=== PATIENT | female | born 1960 | race Caucasian/White ===

== ENCOUNTER → 2023-07-15 14:16 | Outpatient (REF) | payer OTHER, SELFPAY | LOC: HWWDC 14:16 | PROVIDERS: ATTENDING PHYSICIAN Obstetrics & Gynecology; FAMILY PHYSICIAN Family Medicine | DX: Z12.31 Encounter for screening mammogram for malignant neoplasm of breast (principal) | CPT/HCPCS: 77063; 77067 ==

== ENCOUNTER → 2023-09-08 | Outpatient (REF) | payer OTHER, SELFPAY | LOC: DHSLP | PROVIDERS: ATTENDING PHYSICIAN Internal Medicine; FAMILY PHYSICIAN Family Medicine | DX: G47.33 Obstructive sleep apnea (adult) (pediatric) (principal) | CPT/HCPCS: 95800 ==

== ENCOUNTER → 2023-11-03 06:43 | Day surgery (SDC) | payer OTHER, SELFPAY | LOC: GI 06:43 | PROVIDERS: ATTENDING PHYSICIAN Internal Medicine Gastroenterology | DX: Z12.11 Encounter for screening for malignant neoplasm of colon (principal); K63.89 Other specified diseases of intestine; Z86.010 Personal history of colon polyps; K64.8 Other hemorrhoids | CPT/HCPCS: G0105 ==

== ENCOUNTER → 2023-11-05 14:59 | Outpatient (REF) | payer OTHER, SELFPAY | LOC: RCS 14:59 | PROVIDERS: ATTENDING PHYSICIAN Internal Medicine; FAMILY PHYSICIAN Family Medicine | DX: R94.31 Abnormal electrocardiogram [ECG] [EKG] (principal); R07.9 Chest pain, unspecified | CPT/HCPCS: 93306 ==

== ENCOUNTER → 2023-11-07 07:29 | Outpatient (REF) | payer OTHER, SELFPAY | LOC: DHCBC/DCA 07:29 | PROVIDERS: ATTENDING PHYSICIAN Internal Medicine; FAMILY PHYSICIAN Family Medicine | DX: R94.31 Abnormal electrocardiogram [ECG] [EKG] (principal); R07.9 Chest pain, unspecified | CPT/HCPCS: 78452; 93017; A9500; J2785 ==

== ENCOUNTER 2023-11-14 03:00 | Inpatient (IN) | payer OTHER, SELFPAY ==
[2023-11-13] VITALS (9 sets, daily range): BP systolic 134–176; BP diastolic 62–95; BMI 46.1
--- NOTE | 2023-11-13 10:49 | ED.GENMED ---
History of Present Illness
General
Chief Complaint: CODE
Time Seen by Provider: 11/13/23 10:48
History of Present Illness
History of Present Illness:
HPI: I spoke to Dr. Gray, anesthesiologist at the [facility] for the history. The patient was going to have a knee replacement today. They attempted spinal anesthesia however this was unsuccessful. They then attempted LMA
but it would not seat properly. Decision was made to attempt intubation however she was a very difficult intubation. She was given succinylcholine. She desatted to 30% and they were concerned about the possibly of PEA so she was given
epi/atropine and was briefly given chest compressions. She then had a pulse and was hypertensive likely related to the epinephrine use. She arrived confused and states that she has a sore throat is her main complaint.
EXAM:
GENERAL: The patient is somewhat ill-appearing
HEENT: Recent appearing bleeding noted in intraorally, torus palatinus noted
CARDIOVASCULAR: No murmurs, borderline tachycardic heart rate, regular rhythm, No chest wall tenderness
PULMONARY: Very hoarse voice, mild tachypnea with slightly increased work of breathing
ABDOMEN: Soft with no peritoneal signs, no tenderness
NEUROLOGIC: Fair strength all extremities, no coordination deficits
PSYCHIATRIC: Appropriate mental status, normal insight and judgement
EXTREMITIES: Nontender, no edema, moves all extremities equally
SKIN: Surgical prep noted to the right lower extremity
TIME OF INITIAL ENCOUNTER: 10:45 AM
NUMBER AND COMPLEXITY OF PROBLEMS ADDRESSED AT THE ENCOUNTER
� Chronic conditions affecting care: Asthma, high blood pressure, elevated BMI
� Acute Exacerbation and/or Progression of Chronic Illness: This is an acute problem
� Differential Diagnosis includes: Difficult intubation/PEA,
AMOUNT AND/OR COMPLEXITY OF DATA TO BE REVIEWED AND ANALYZED
� I performed an independent evaluation of and my interpretation is:
EKG: Sinus 100, nonspecific ST abnormality
CT:
X-rays: Chest x-ray unremarkable
Laboratory Studies: CBC, with exception of slight low potassium of 3.3 chemistries unremarkable, initial troponin negative
Other:
� Review of other/old records: Stress nuclear negative for ischemia 11/07/2023
� Clinical information was obtained by an independent historian: I spoke to Dr. Gray, anesthesiologist. I also spoke to the daughter at bedside.
� Prescriptions/Medications Considered but not given:
� Further testing considered but not performed:
RISK OF COMPLICATIONS AND/OR MORBIDITY OR MORTALITY OF PATIENT MANAGEMENT
� Social determinants of health affecting care: Lives at home
� Discussion with other providers:
� Escalation of care including admission/observation vs risk of discharge considered: On initial evaluation the patient had hoarse voice and transmitted upper airway sounds. She was given Decadron. Most likely etiology of what
could have been a PEA arrest related to difficult/failed intubation. Some improvement while in ED. Sats were not low but nurses did place on supplemental oxygen for comfort. I did decrease the FiO2. She has remained hemodynamically stable.
Past History
Past History
ED Past Medical History: None
ED Past Surgical History: None
Phy Exam
Physical Exam
Physical Exam:
See HPI
Course
Orders/Labs/Results
Orders:
Orders
11/13/23 10:42
Electrocardiogram (*1) Urgent
Reason for Study: Chest Pain
Cardiac Monitoring- Treatment ONCE
EKG- Treatment ONCE
IV Insert/Care/Rem.- Treatment PRN
Portable Chest Xray [CR Chest Portable - 1 View] Stat
Comment:
Reason For Exam: rosc
Reason Study Needs to be Portable: Patient Unstable
If Reason is Other, explain: rosc
O2 Therapy [RESP] Urgent
Titrate/Wean O2 to maintain O2 sat greater than (%): 90
Special Instructions: Maintain sats >/=90%
Pulse Ox/spot Check [RESP] Urgent
Quantity: 1
Special Instructions: ON ROOM AIR
11/13/23 10:48
Dexamethasone Sod Phosphate [Decadron] 10 mg IV NOW STA
11/13/23 10:52
Complete Blood Count/With Diff Urgent
Comprehensive Metabolic Panel Urgent
Troponin I Urgent
11/13/23 10:54
Ondansetron Injectable [Zofran] 4 mg .ROUTE .STK-MED ONE
Ondansetron Injectable [Zofran] 4 mg IV NOW STA
11/13/23 11:45
Ketorolac [Toradol] 15 mg IV NOW STA
11/13/23 11:46
Ketorolac [Toradol] 15 mg .ROUTE .STK-MED ONE
11/13/23 12:09
Potassium Chloride [KCl] 40 meq 0.9% Sodium Chloride 250 ml [Nss] 250 ml IV NOW
11/13/23 13:01
Admit/Transfer Patient As Directed
Co-Sign Provider:
Level of Care: Observation services
Assign to:: IMU- Intermediate Care
Physician / Group: latonia santana
Diagnosis: hypoxia brief pea arrest 2/2 difficult airway intubation, hypoK, obesity
Reason for Hospitalization: hypoxia brief pea arrest 2/2 difficult airway intubation, hypoK, obesity
Code Status As Directed
Resuscitation Status: Full Code
11/13/23 13:[address] Non Medication Order As Directed
Physician Order: for bedside swallow attempt water only at first
Speech screening from Nursing [Speech Screening from [facility]] Routine
11/16/23 11:00
DC Protocol for Telemetry ONCE
Abnormal Lab Results
11/13/23
10:52
MCH 26.6 L pg
(27.0-31.0)
MCHC 32.8 L g/dL
(33.0-37.0)
RDW 14.8 H %
(11.5-14.5)
Abs Immat Gran (auto) 0.1 H 10^3/uL
(0-0.05)
Absolute Lymphs (auto) 4.4 H 10^3/uL
(1.2-3.4)
Immature Gran % 1.2 H %
(0-0.5)
Neutrophils % 42.0 L %
(42.2-75.2)
Potassium 3.3 L mmol/L
(3.5-5.1)
BUN 20 H mg/dl
(7-17)
Glucose 173 H mg/dl
(70-99)
AST 56 H U/L
(14-36)
ALT 37 H U/L
(0-35)
Alkaline Phosphatase 132 H U/L
(38-126)
Total Protein 6.1 L g/dl
(6.3-8.2)
11/13/23 10:52
11/13/23 10:52
Vital Signs
Initial and Last Documented VS:
Initial Vital Signs
Pulse Resp Pulse Ox
104 18 98
11/13/23 10:44 11/13/23 10:44 11/13/23 10:44
Last Documented Vital Signs
Temp Pulse Resp BP Pulse Ox
97.9 F 88 18 165/93 98
11/13/23 10:45 11/13/23 13:00 11/13/23 13:00 11/13/23 13:00 11/13/23 13:00
*Critical Care Note
Total Time (30-74mins, 75-104mins- exclusive of procedures): Not Applicable
ED Attending Note
-
Portions of this chart may have been created with voice recognition software.� Occasional wrong word or��sound alike� substitutions may have occurred due to the inherent limitations of voice recognition software.
Discharge Plan
Departure
Patient Disposition: Admit
Date of Disposition: 11/13/23
Time of Disposition: 11:50
Presentation/result/management discussed w/ accepting MD/DO: Hospitalist
Discharge Problem:
Cardiac arrest, Difficult airway for intubation
Interventions
Interventions:
*Risk Screen - Suicide Last Done: 11/13/23 10:48
*General Assessment Last Done: 11/13/23 10:48
*Neglect/Abuse Screening Last Done: 11/13/23 10:48
ED- Fall Risk Assessment Last Done: 11/13/23 11:38
*ED COVID-19 Vaccine History Last Done: 11/13/23 10:48
ED- Cardiac Assessment Last Done: 11/13/23 11:38
ED- Pulmonary Assessment Last Done: 11/13/23 11:38
[2023-11-13] MEDS: ZOFRAN 4 MG IV (10:55)
[2023-11-13] MEDS: DECADRON 10 MG IV (10:55)
[2023-11-13 11:03] LABS: % Basophils 0.4 % (0-2); % Eosinophils 1.8 % (0-6); % Immature Granulocytes 1.2 % (0-0.5); % Lymphocytes 48.7 % (20.5-51.1); % Monocytes 5.9 % (1.7-9.3); Absolute Eosinophils 0.2 10^3/uL (0-0.7); Absolute Immature Granulocytes 0.1 10^3/uL (0-0.05); Absolute Lymphocytes 4.4 10^3/uL (1.2-3.4); Absolute Monocytes 0.5 10^3/uL (0.1-0.6); Absolute Neutrophils 3.8 10^3/uL (1.4-6.5); Hematocrit 38.7 % (37.0-47.0); Hemoglobin 12.7 g/dL (12.0-16.0); Mean Corp Hgb Conc. 32.8 g/dL (33.0-37.0); Mean Corpuscular Hgb 26.6 pg (27.0-31.0); Mean Platelet Volume 9.9 fL (7.4-10.4); Nucleated Red Blood Cells % 0 %; Platelet Count 194 10^3/uL (130-400); Red Blood Cell Count 4.78 10^6/uL (4.20-5.40); Red Cell Dist. Width 14.8 % (11.5-14.5)
[2023-11-13 11:16] LABS: ALT (SGPT) 37 U/L (0-35); AST (SGOT) 56 U/L (14-36); Albumin 3.5 g/dl (3.5-5.0); Alkaline Phosphatase 132 U/L (38-126); Blood Urea Nitrogen 20 mg/dl (7-17); Calcium 9.1 mg/dl (8.4-10.2); Carbon Dioxide 29 mmol/L (22-30); Chloride 104 mmol/L (98-107); Estimated Creatinine Clearance 85 ml/min; Glucose 173 mg/dl (70-99); Potassium 3.3 mmol/L (3.5-5.1); Sodium 139 mmol/L (135-145); Total Bilirubin 0.5 mg/dl (0.2-1.3); Total Protein 6.1 g/dl (6.3-8.2); eGFR > 60.00
[2023-11-13 11:24] LABS: Troponin I < 0.012 ng/ml
[2023-11-13] MEDS: TORADOL 15 MG IV (11:47)
--- NOTE | 2023-11-13 12:27 | HPS.HSE ---
Addendum entered and electronically signed by Ashok Amaya MD 11/13/23 15:00:
PEA arrest during attempted intubation. CPR performed. Initial Trop was neg
Pt seen independently and agree with [employer] [facility] ANALYST note
HEENT very hoarse voice, large neck
Lungs clear
CV reg
Abd soft, nondistended
Ext no edema
Imp: Hypoxia with PEA/CPR
obesity
JENNY
P:admit IMU
Pulm and Cardio consults
Dgts told to bring CPAP from home
Original Note:
Family Physician
-
Family Physician:
Chief Complaint
-
Hypoxia status post difficult intubation brief episode of PEA
History of Present Illness
62-year-old female from outpatient [facility] who had attempted anesthesia for right TKA with Dr. Rubio. During anesthesia attempt by Dr. Gray she had a failed spinal followed by failed LMA that would not seal. She was a
difficult intubation during intubation she decided to 30% and had brief episode of PEA treated with epinephrine, atropine, chest compressions with return of ROSC. Upon arrival to the ER she was reported to be in moderate distress nauseated with
severe throat pain, tachypnea and some slight blood in her mouth. She was treated with IV Zofran, IV steroids and Toradol. She was also noted to be hypokalemic at 3.3. She did have outpatient stress test that was negative on 11/07/2023 and a 2D
echo on 11/05/2023 with EF 65 to 70%. Her daughter who is at bedside reports she had right shoulder surgery in July 2022 and ankle surgery February 2023 but this was completed by a nerve block only not general anesthesia. The Patient currently
reports hoarse voice with some painful swallowing and belching. She denies fever, chills, chest pain, shortness of breath, cough, abdominal pain, nausea, vomiting or diarrhea, urinary symptoms
She has Past medical history hypertension, HLD, asthma, depression, morbid obesity, arthritis, sleep apnea uses nasal pillow
Medical History
Past Medical History
Past Medical History: Reports Other
Additional Past Medical History:
hypertension
HLD,
asthma-mild intermittent associated with URIs only per patient
depression,
morbid obesity
sleep apnea uses nasal pillow
arthritis
Past Surgical History: Reports Other
Additional Past Surgical History:
Cholecystectomy 2003
Right ankle tendon repair with screw February 2023 completed with nerve block
Right shoulder cuff repair July 2022 completed with nerve block
Social History
Tobacco: Non-smoker
Alcohol: None
Drug: None
Personal: Single
Living: Alone
Family History
Family History: Other (Both parents living in their 80s mother history of hypothyroidism, father history of CVA x 2, paternal grandfather [place] age 50s)
Allergies / Home Medications
Allergies reflects when Allergies were last updated in [employer].
Home Medications with original date entered in [employer]
Allergy/Medication List:
Allergies
Allergy/AdvReac Type Severity Reaction Status Date / Time
No Known Allergies Allergy Verified 03/11/23 13:11
Home Medications
docusate sodium 100 mg capsule (Colace) 100 mg PO BID Constipation 08/08/22
calcium carbonate 500 mg-vitamin D3 3.125 mcg (125 unit) tablet 1 tab PO DAILY Supplement 03/07/23
hydrochlorothiazide 25 mg tablet 25 mg PO DAILY 11/13/23
mupirocin 2 % topical ointment 1 applic topical BID 11/13/23
rosuvastatin 5 mg tablet 5 mg PO DAILY 11/13/23
therapeutic multivitamin 1 tab PO DAILY 11/13/23
Review of Systems
-
History Source: Patient and Family (Daughter at bedside)
A 12 point ROS was completed and negative except as noted: Yes
Constitutional: Denies Fatigue or Chills
EENT: Reports Sore Throat and Other (Hoarse voice mallampati class IV airway, miranda to Maxilla midline ); Denies Runny Nose
Respiratory: Denies Cough or Trouble Breathing
Cardiac: Denies Chest Pain, Diaphoresis, Palpitations or Syncope
Abdomen/GI: Reports Other (Belching likely secondary to LMA attempt for intubation); Denies Abdominal Pain, Nausea, Vomiting, Diarrhea, Constipated or Bloody Stools
: Denies Dysuria, Frequency, Flank Pain, Incontinence or Difficulty Voiding
Musculoskeletal: Reports Joint Pain (Chronic right knee pain); Denies Joint Swelling or Edema
Skin: Denies Itching or Rash
Neurological: Denies Dizzy, Headache or Weakness
Endocrine: Reports No Symptoms
Hematologic/Lymphatic: Reports No Symptoms
Psych: Reports Calm
Physical Exam
Vital Signs
Vital Signs
Temp Pulse Resp BP Pulse Ox
97.9 F 94 15 148/91 94
11/13/23 10:45 11/13/23 11:30 11/13/23 11:30 11/13/23 11:00 11/13/23 11:30
Physical Exam
General: Conversant (But with hoarse voice) and Morbidly Obese; No Pain, Fever or Chills
HEENT: NormoCephalic, Anicteric, Moist mucous membranes, PERRLA, [place] Conjunctivae, No Ptosis and Other (Hoarse voice, Mallampati class IV airway on exam, miranda to Maxilla midline )
Respiratory: Clear; No Wheezes, Rales or Rhonchi
Cardiac: S1/S2 and Regular Rhythm; No Murmur, Rub, Gallop or Peripheral Edema
GI: Soft, Non Tender, Non Distended, Normal Bowel Sounds and No Hepatosplenomegaly
Rectal: Deferred by Provider
Genito-urinary: Deferred by me
Musculoskeletal: No Clubbing, No Cyanosis and No Edema
Skin: Warm and Dry; No Rash or Jaundice
Neuro: AO x 3, No Motor Deficits, Nonfocal/grossly intact, Cranial Nerves Intact, No Sensory Deficits and Other (Hoarse voice); No Slurred Speech, Facial Droop or Tremors
Psych: Calm
Laboratory Results
-
11/13/23 10:52
11/13/23 10:52
Laboratory Results
Total Bilirubin 0.5 mg/dl (0.2-1.3) 11/13/23 10:52
AST 56 U/L (14-36) H 11/13/23 10:52
ALT 37 U/L (0-35) H 11/13/23 10:52
Alkaline Phosphatase 132 U/L (38-126) H 11/13/23 10:52
Troponin I < 0.012 ng/ml 11/13/23 10:52
Impression/Plan
-
Impression/Plan:
OBS IMU
#Hypoxia secondary to Difficult intubation likely causing brief episode of PEA
-Patient treated with epinephrine/atropine and chest compressions with ROSC
Had O2 down to 30% in OR
Mallampati class IV airway on exam
-Patient currently 94-100% on 2 L nasal cannula
-Will monitor for supportive care
-IV Zofran, IV steroids, IV Toradol given in Er
-Check CXR in am, monitor for fever, elevated WBC, blood pressure
CXR: No acute cardiopulmonary process
2D echo 11/05/2023: EF 65 to 70%, no wall abnormalities no valvular abnormalities no pulm HTN
Nuclear stress test 11/07/2023: Negative for ischemia systolic function normal
#Hoarseness of throat with nausea secondary to difficult intubation with multiple airway attempts
--Nurse bedside swallow eval-if passes would give full liquid diet
-Speech swallow eval
-Cepacol lozenges
#Ekg changes 2/2 to likely brief PEA from hypoxia
-follow Ekg, t wave inversion inferior leads
- check troponin
-Consult Cardiology
#Hypokalemia
K3.3
-Will give KCl 40 mEq IV
#Right knee DJD attempted right TKA today 11/13/2023
-unable to perform secondary to difficult intubation, failed spinal epidural and failed LMA would not seal
-Follow-up outpatient with Ortho for new plan
#HTN�benign
BP 148/91
-Hold HCTZ
#HLD
-Continue Crestor 5 mg daily
#Hx asthma mild intermittent associated with URIs only
-Patient does not use any inhalers
#Depression
-Follows with psychology
#sleep apnea uses nasal pillow
dx 1.5 months ago
#Morbid obesity due to excess calorie consumption�BMI 46
-Affects all aspects of care
-Weight loss recommended-patient reports did have discussion about Ozempic with PCP who wanted to hold off I recommend she revisit that consult given today's complications from surgery
Other PMH:
Frequent urination, nocturia Hx
Arthritis
DVT prophylaxis
Subcu Lovenox
Full code
[2023-11-13] MEDS: KCL 270 MEQ IV (12:56)
--- NOTE | 2023-11-13 13:42 | CON.CAR ---
Addendum entered and electronically signed by Hugo Linda MD 11/13/23 15:14:
I saw and examined the patient.
The [employer]'s note was reviewed and I agree with the note.
62-year-old woman history of hypertension hypercholesterolemia asthma obesity and obstructive sleep apnea who was scheduled for knee replacement. Sequence of events obtained from hospitalist team. Apparently initial plans were for epidural but
then there needed to be a change in anesthesia initial attempt at LMA but this could not be done. Decision was made to proceed with general anesthesia patient given additional sedation and apparently had desaturation with sats in the 30s and had a
PEA arrest with brief CPR patient given epinephrine and atropine with return of circulation currently awake alert and comfortable. Hoarse voice no complaints of shortness of breath or chest pain. Patient had preoperative testing 10/2023 including
echocardiogram with normal left ventricular function and a Lexiscan study with no ischemia. It appears that the primary event was related to desaturation secondary to anesthesia. Patient currently hemodynamically stable in sinus rhythm with stable
ECG.
-Continue monitoring of respiratory status and airway as directed by primary team and pulmonary.
-Monitor on telemetry
-Follow-up echocardiogram this admission.
-Patient currently hypertensive. Continue to monitor blood pressure.
Original Note:
Consultation
Consultation Request
Date/Time Consultation Requested: 11/13/23 1316
Date/Time Consultation Performed: 11/13/23 1345
Requesting Provider: Yoselyn Moscoso NP
Performing Provider: Lily BERKOWITZ for Dr. Linda
Reason for Consultation: PEA arrest following difficulty with intubation, EKG abnormalities
Medical History
-
Chief Complaint: PEA arrest following difficulty with intubation
History of Present Illness:
62 y/o female with hypertension, dyslipidemia, asthma, severe obesity, and JENNY on CPAP who is here for evaluation from surgery center. Briefly, she was scheduled to have a knee replacement. Initially, spinal anesthesia and LMA were unable to be
done. Intubation was reportedly complicated and she desaturated to 30's. In this setting, she was reported to have PEA arrest and CPR was performed and she was given epinephrine, as well as atropine per chart, and ROSC was achieved. She is in the ER
currently on O2 by GA. She is in no respiratory distress. She denies CP or SOB. She does have a very sore throat and complaints of phlegm. She is AAO x 3. Her daughter is at her bedside.
Past Medical History
Past Medical History: Asthma, HTN, Hypercholesterolemia and Other (severe obesity)
Social History
Tobacco: Non-Smoker
Family History
Family History: Other (dad had stroke)
Allergies / Home Medications
Allergy/AdvReac Type Severity Reaction Status Date / Time
No Known Allergies Allergy Verified 03/11/23 13:11
�Medication �Instructions �Recorded �Confirmed �Type
docusate sodium 100 mg capsule 100 mg PO BID Constipation 08/08/22 11/13/23 History
(Colace)
calcium carbonate 500 mg-vitamin 1 tab PO DAILY Supplement 03/07/23 11/13/23 History
D3 3.125 mcg (125 unit) tablet
hydrochlorothiazide 25 mg tablet 25 mg PO DAILY 11/13/23 11/13/23 History
mupirocin 2 % topical ointment 1 applic topical BID 11/13/23 11/13/23 History
rosuvastatin 5 mg tablet 5 mg PO DAILY 11/13/23 11/13/23 History
therapeutic multivitamin 1 tab PO DAILY 11/13/23 11/13/23 History
Review of Systems
-
History Source: Patient
All other systems: Negative unless noted
EENT: Sore Throat and Other (phlegm)
Physical Exam
Vital Signs
Temp Pulse Resp BP Pulse Ox
97.9 F 88 18 165/93 98
11/13/23 10:45 11/13/23 13:00 11/13/23 13:00 11/13/23 13:00 11/13/23 13:00
Lab Results
11/13/23 10:52
11/13/23 10:52
Troponin I < 0.012 ng/ml 11/13/23 10:52
Physical Exam
General: Well Developed and No Apparent Distress
HEENT: Normocephalic and Anicteric
Respiratory: Other (on O2 by NC, coarse lung sounds t/o)
Cardiac: Regular Rhythm
Skin: Warm and Dry
Neuro: AO x 3
Psych: Calm
Impression / Plan
-
PEA arrest, respiratory cause (difficult intubation with severe desaturation):
-this diagnosis is threat to life
-now on NC, denies any respiratory distress. CXR without acute abnormality.
-EKG with non-specific abnormalities- recheck in AM
-hypokalemia noted and being replaced
-echo is ordered to ensure no changes from recent
-trop is normal- trend
-complaint is sore throat and phlegm- management per primary team
HTN:
-monitor and adjust meds if needed
Dyslipidemia:
-on statin
Severe obesity:
-will benefit from weight loss moving forward
JENNY:
-continue CPAP
Data Reviewed
-
EKG: Tracing Personally Visualized and interpreted (SR with NS ST/T abnormalities)
Radiology: Report Reviewed by me (No active cardiopulmonary disease.)
Medical Tests (Nuc Med, Echo etc): Report Reviewed by me (Echo 11/05/23: Normal left ventricular size and systolic function. No regional wall motion abnormalities are seen. LV ejection fraction is 65-70% by Matson's method of discs. Normal
diastolic function. Normal right ventricular size and function. Normal atria. No significant valve abnormalities.) and Other (nuclear stress test 11/07/23: normal)
Labs: Labs Reviewed by me
--- NOTE | 2023-11-13 15:07 | CON.PUL ---
Consultation
Consultation Request
Date/Time Consultation Requested: 11/13/23
Date/Time Consultation Performed: 11/13/23
Performing Provider: Lito
Reason for Consultation: JENNY, post arrest
Medical History
-
History of Present Illness:
Patient is a 62-year-old female with previous history of JENNY on CPAP, morbid obesity, asthma sent to ER following cardiac arrest at outpatient surgery center. She underwent elective right knee replacement, spinal anesthesia was attempted but
unsuccessful. Was tried for attempted LMA but airway could not be established. Decision was made for intubation however she was a very difficult intubation, and under induction desaturated to the 30s and developed PEA arrest. Given epi and
atropine with brief chest compressions. She had ROSC, transported to ER, confused. Her main complaint now is sore throat and chest discomfort.
Family at bedside, notes that she had a colonoscopy last week and tolerated MAC well.
Past Medical History
Past Medical History: Other (see list below)
Social History
Tobacco: Non-smoker
Alcohol: None
Drug: None
Family History
Family History: Reviewed & Not Pertinent
Allergies / Home Medications
Allergies
Allergy/AdvReac Type Severity Reaction Status Date / Time
No Known Allergies Allergy Verified 03/11/23 13:11
Home Medications
�Medication �Instructions �Recorded �Confirmed �Last Taken �Type
docusate sodium 100 mg capsule 100 mg PO BID Constipation 08/08/22 11/13/23 11/12/23 History
(Colace)
calcium carbonate 500 mg-vitamin 1 tab PO DAILY Supplement 03/07/23 11/13/23 11/12/23 History
D3 3.125 mcg (125 unit) tablet
hydrochlorothiazide 25 mg tablet 25 mg PO DAILY 11/13/23 11/13/23 11/12/23 History
mupirocin 2 % topical ointment 1 applic topical BID 11/13/23 11/13/23 11/12/23 History
rosuvastatin 5 mg tablet 5 mg PO DAILY 11/13/23 11/13/23 11/12/23 History
therapeutic multivitamin 1 tab PO DAILY 11/13/23 11/13/23 11/12/23 History
Review of Systems
-
History Source: Patient
All other systems: Negative unless noted
Vitals / Labs / Diagnostic Testing
Vital Signs
Temp Pulse Resp BP Pulse Ox
97.9 F 94 20 165/93 97
11/13/23 10:45 11/13/23 14:00 11/13/23 14:00 11/13/23 13:00 11/13/23 14:18
Lab Data
11/13/23 10:52
11/13/23 10:52
Diagnostic Testing:
Physical Exam
-
HEENT: Normocephalic, Anicteric and Moist Mucous Membranes
Cardiovascular: S1/S2 and Regular Rhythm
Respiratory: Clear and Non-Labored Respirations
GI: Soft, Non Distended and Non Tender
Neurology: Awake, Alert, Oriented, AO x 3 and No Motor Deficits
Skin: Warm, Dry and Good Color
General: Comfortable and Other (NAD)
Assessment
-
Patient is a 62-year-old female with previous history of JENNY on CPAP, morbid obesity, asthma sent to ER following cardiac arrest at outpatient surgery center. She underwent elective right knee replacement, spinal anesthesia was attempted but
unsuccessful. Was tried for attempted LMA but airway could not be established. Decision was made for intubation however she was a very difficult intubation, and under induction desaturated to the 30s and developed PEA arrest. Given epi and
atropine with brief chest compressions. She had ROSC, transported to ER, confused. Her main complaint now is sore throat and chest discomfort. Family at bedside, notes that she had a colonoscopy last week and tolerated MAC well. We are consulted
for eval 11/13/23.
Cardiac arrest, primarily respiratory event with desaturation --> PEA arrest
s/p Epi/atropine/CPR
Difficult airway/failed intubation
History of JENNY, high risk airway
Hypokalemia
Hyperglycemia
Conditions present [employer]
JENNY on CPAP, AHI 25.2/78%
venous insufficiency in legs
Obesity
Asthma
Depression/anxiety
Colon polyps
Cholecystectomy(1985)
Bilateral tubal ligation
Ankle surgery/ tendon removal/ repair
Right Shoulder Scope 08/13/2022
R foot surgery 03/13
Plan
Supplemental o2 placed, but not noted to be currently hypoxemic
Had sats in 30s while under anesthesia
She is not known to be on O2 at home
Wean as tolerated
Home O2 evaluation eventually
Prior history of lung disease is noted including asthma, JENNY
Can resume home inhalers
Seen in our office
Sore throat noted, assess for swallow
Speech eval
Suspect patient has respiratory event from difficult airway
We reviewed her risk in the future for any elective procedures using MAC/general
She would need pulmonary clearance in the future
JENNY, resume nightly CPAP use
Most crucial to resume while there is likely airway swelling
CXR/CT obtained indicating NAD
Other imaging reviewed, repeat testing as needed
Prior ECHO results are reviewed indicating normal function
She had cardiac clearance prior to procedure
Cards eval obtained
Weight loss measures recommended
Obesity likely contributing to respiratory symptoms
We discussed weight loss would improve her risk and reduce her need for CPAP as well
Will need outpatient pulmonary evaluation in our office for PFTs and 6MWT
Reviewed with patient
If no acute findings in next 24 hours noted, could be discharged
We will follow
Diagnostic Data
Chest X-Ray: 10/24/23- No active cardiopulmonary disease.
CT Scan:
Echo: 11/05/23- Normal left ventricular size and systolic function. No regional wall motion abnormalities are seen. LV ejection fraction is 65-70% by Matson's method of discs. Normal diastolic function. Normal right ventricular size and function.
Normal atria. No significant valve abnormalities. No evidence of pulmonary hypertension.
PFT's:
Reports and relevant images were personally reviewed.
Total time spent on this consultation __76__ includes review of history, physical exam, medications, laboratory data, personal review of imaging, extensive review of outpatient records, discussion with care team and respiratory therapy.
[2023-11-13] MEDS: ANESTHETIC LOZENGE 1 LOZENGE PO ×2 (16:21→20:05)
--- NOTE | 2023-11-13 16:27 | W.PN.UPDATE ---
Update Note
Progress Note Update
I saw and evaluated the patient at bedside. 62-year-old female who is scheduled for right knee replacement with me today who went into respiratory arrest prior to starting surgery requiring resuscitation. The patient was awake and alert describing
sore throat and soreness around her chest wall. She is on nasal cannula. We discussed the events that transpired in the OR with the patient and family. We discussed focusing in the short-term on her acute medical issues. We discussed that she
may follow-up with me at any time to discuss both short-term and long-term treatments for her knees when she has recovered medically. All questions were answered.
[2023-11-13] MEDS: TYLENOL 650 MG PO ×2 (16:33→20:40)
[2023-11-13] MEDS: NSS 1000 IV (16:34)
[2023-11-13] MEDS: LOVENOX 40 MG SC (17:10)
[2023-11-13 17:20] LABS: Troponin I 0.114 ng/ml
[2023-11-13] MEDS: NORVASC 5 MG PO (18:14)
[2023-11-13] MEDS: COLACE PO (20:05)
--- NOTE | 2023-11-13 20:36 | PTCARENOTE ---
Received pt at change of shift. Pt c/o pain in her chest and back from compressions done prior to arrival at - PRN Tylenol administered to pt (see MAR). Shallow respirations d/t pain. Lungs CTA but diminished throughout. C/o sore throat - PRN
cepacol provided to pt (see MAR). Resting in bed with call garcia in reach. Daughter at bedside.
[2023-11-14] VITALS (12 sets, daily range): BP systolic 102–174; BP diastolic 72–122; PULSE 73–74; O2SAT 96; BMI 44.4
[2023-11-14 00:09] LABS: Troponin I 0.089 ng/ml
[2023-11-14] MEDS: NSS 1000 IV (05:37)
[2023-11-14 06:04] LABS: % Basophils 0.1 % (0-2); % Immature Granulocytes 0.4 % (0-0.5); % Lymphocytes 13.9 % (20.5-51.1); % Monocytes 9.4 % (1.7-9.3); % Neutrophils 76.2 % (42.2-75.2); Absolute Immature Granulocytes 0.1 10^3/uL (0-0.05); Absolute Lymphocytes 1.9 10^3/uL (1.2-3.4); Absolute Monocytes 1.3 10^3/uL (0.1-0.6); Absolute Neutrophils 10.5 10^3/uL (1.4-6.5); Hematocrit 39.1 % (37.0-47.0); Hemoglobin 13.1 g/dL (12.0-16.0); Mean Corp Hgb Conc. 33.5 g/dL (33.0-37.0); Mean Corpuscular Hgb 27.5 pg (27.0-31.0); Mean Platelet Volume 10.5 fL (7.4-10.4); Nucleated Red Blood Cells % 0 %; Platelet Count 200 10^3/uL (130-400); Red Blood Cell Count 4.77 10^6/uL (4.20-5.40); White Blood Cell Count 13.8 10^3/uL (4.8-10.8)
[2023-11-14] MEDS: TYLENOL 650 MG PO ×4 (06:30→22:19)
[2023-11-14 06:39] LABS: Blood Urea Nitrogen 17 mg/dl (7-17); Calcium 9.7 mg/dl (8.4-10.2); Carbon Dioxide 28 mmol/L (22-30); Chloride 106 mmol/L (98-107); Estimated Creatinine Clearance 111 ml/min; Glucose 125 mg/dl (70-99); Potassium 4.3 mmol/L (3.5-5.1); Sodium 138 mmol/L (135-145); eGFR > 60.00
[2023-11-14] MEDS: NORVASC 5 MG PO (07:39)
[2023-11-14] MEDS: COLACE 100 MG PO ×2 (07:39→19:33)
[2023-11-14] MEDS: OSCAL 500 + D 500 MG PO (07:39)
[2023-11-14] MEDS: CRESTOR 5 MG PO (07:39)
--- NOTE | 2023-11-14 08:43 | W.PN.CD ---
Today's Communication / Plan
-
stable overnight
echo with normal LVF and no rhyhtm issues
Primary team has added amlodipine for HTN. Monitor BP with change in meds
No addtional recommendations
call if additional assistance required
Impression / Plan
-
PEA arrest, respiratory cause - desaturation and airway issues during anesthesia
[facility]
- follow up echo with normal LVF
-troponin rise likely non OK troponin related to hypotension and hypoxemia. Echo with normal LVF
.
chest wall pain secondary to CPR. preproducible withpalpation
HTN:
amlodipine started can use in stead of HCTZ
Dyslipidemia:
-on statin
obesity:
JENNY:
-continue CPAP
-pulmonary following
Physical Exam
Vital Signs/Labs
Vital Signs
Temp Pulse Resp BP Pulse Ox
98.2 F 73 18 158/84 95
11/14/23 07:52 11/14/23 07:39 11/14/23 04:00 11/14/23 07:39 11/14/23 04:00
11/13/23 11/14/23 11/15/23
06:59 06:59 06:59
Actual Weight 110 kg
11/14/23 05:37
11/14/23 05:37
LAB Results
11/13/23 11/13/23 11/13/23
10:52 16:44 23:17
Troponin I < 0.012 0.114 H* D 0.089 H*
Physical Exam
Constitutional: No acute distress
EENT: Anicteric
Cardiovascular: Rhythm & rate is regular and Other (chest wall tenderness with palpation consistent with CPR)
Respiratory: Respiratory effort normal
GI: Soft
Neuro/Psych: Alert
Data Reviewed
-
Date of Service: November 14, 2023
Medical Decision Making: Reviewed Test Results
Medical Tests (PFT, Pathology etc): Report Reviewed by me
Labs: Labs Reviewed by me
--- NOTE | 2023-11-14 09:11 | W.PN.PUL3 ---
Today's Communication / Plan
-
Doing well today, cardiac w/u negative
She is stable on RA
Respiratory event primarily, we reviewed her risk in the future
Continue home CPAP, doing well
Referral to OP obesity medicine for weight loss
Outpatient pulmonary FU arrangement in next 2-3 weeks, PFTs
Discharge planning per team
Assessment
-
Patient is a 62-year-old female with previous history of JENNY on CPAP, morbid obesity, asthma sent to ER following cardiac arrest at outpatient surgery center. She underwent elective right knee replacement, spinal anesthesia was attempted but
unsuccessful. Was tried for attempted LMA but airway could not be established. Decision was made for intubation however she was a very difficult intubation, and under induction desaturated to the 30s and developed PEA arrest. Given epi and
atropine with brief chest compressions. She had ROSC, transported to ER, confused. Her main complaint now is sore throat and chest discomfort. Family at bedside, notes that she had a colonoscopy last week and tolerated MAC well. We are consulted
for eval 11/13/23.
Cardiac arrest, primarily respiratory event with desaturation --> PEA arrest
s/p Epi/atropine/CPR
Difficult airway/failed intubation
History of JENNY, high risk airway
Hypokalemia
Hyperglycemia
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
JENNY on CPAP, AHI 25.2/78%
venous insufficiency in legs
Obesity
Asthma
Depression/anxiety
Colon polyps
Cholecystectomy(1985)
Bilateral tubal ligation
Ankle surgery/ tendon removal/ repair
Right Shoulder Scope 08/13/2022
R foot surgery 03/13
Plan
Supplemental o2 placed, but not noted to be currently hypoxemic
Had sats in 30s while under anesthesia
She is not known to be on O2 at home
Wean as tolerated, she is now on RA
Prior history of lung disease is noted including asthma, JENNY
Can resume home inhalers
Seen in our office
Sore throat noted, assess for swallow
Speech eval -- passed/no issues
Suspect patient has respiratory event from difficult airway
We reviewed her risk in the future for any elective procedures using MAC/general
She would need pulmonary clearance in the future
JENNY, resume nightly CPAP use
Most crucial to resume while there is likely airway swelling
CXR/CT obtained indicating NAD
Other imaging reviewed, repeat testing as needed
Prior ECHO results are reviewed indicating normal function
She had cardiac clearance prior to procedure
Cards eval obtained
Weight loss measures recommended
Obesity likely contributing to respiratory symptoms
We discussed weight loss would improve her risk and reduce her need for CPAP as well
Referral given to OP obesity medicine clinic
Will need outpatient pulmonary evaluation in our office for PFTs and 6MWT
Reviewed with patient
Discharge planning per team
Diagnostic Data
Chest X-Ray: 10/24/23- No active cardiopulmonary disease.
CT Scan:
Echo: 11/05/23- Normal left ventricular size and systolic function. No regional wall motion abnormalities are seen. LV ejection fraction is 65-70% by Matson's method of discs. Normal diastolic function. Normal right ventricular size and function.
Normal atria. No significant valve abnormalities. No evidence of pulmonary hypertension.
PFT's:
Reports and relevant images were personally reviewed.
Total time spent on this consultation __51__ includes review of history, physical exam, medications, laboratory data, personal review of imaging, extensive review of outpatient records, discussion with care team and respiratory therapy.
Subjective Data
-
Date of Service:
Date of Service: November 14, 2023
Chief Complaint: Pulmonary Follow Up
Subjective:
no new events ON
on home CPAP
daughters at bedside
Objective Data
Data Reviewed
Vital Signs / I&O / Oxygen:
Vital Signs
Temp Pulse Resp BP Pulse Ox
98.2 F 73 18 158/84 95
11/14/23 07:52 11/14/23 07:39 11/14/23 04:00 11/14/23 07:39 11/14/23 04:00
Intake and Output
11/13/23 11/14/23 11/15/23
06:59 06:59 06:59
Intake Total 920 / 920
Output Total 800 / 800
Balance 120 / 120
SaO2 95
Nasal Cannula flow liters per 2
minute
Physical Exam
General: Comfortable and Other (NAD)
HEENT: Normocephalic, Anicteric, Moist Mucous Membranes and Other (vocal hoarseness)
Cardiovascular: S1-S2 and Regular Rhythm
Respiratory: Clear and Non-Labored Respirations
GI: Soft, Non Distended and Non Tender
Neurology: Awake, Alert, Oriented, AO x 3 and No Motor Deficits
Skin: Warm, Dry and Bruising (neck)
Labs/Micro/Reports
Lab Data
11/14/23 05:37
11/14/23 05:37
--- NOTE | 2023-11-14 10:49 | PTOTSP ---
SPEECH THERAPY SWALLOW EVALUATION:
Patient exhibits clinical signs of oropharyngeal dysphagia, likely acutely related to difficult intubation during failed Right knee replacement surgery. Patient currently with hoarse vocal quality and intermittent wet vocal quality, which
patient/family reported is improved compared to day prior. Inconsistent/intermittent throat clearing noted during p.o. trials. Patient with clear CXR at this time. Elevated WBC. Stable respiratory status, breathing comfortably on room air. Recommend
Regular texture diet and thin liquids, with patient to select soft textures for ease of mastication. Medications whole with small sips of thin liquid. Aspiration precautions including: Upright positioning (OOB in chair preferred), small single sips,
small bites, alternate textures, eat only when alert, only provide p.o. when SpO2>90 and RR<30, intermittent cough/throat clear and re-swallow. Oral care 3x/day and increased mobility as able/tolerated to reduce risk for nosocomial infection.
Recommend close monitoring for signs/symptoms of aspiration (monitor temp, CXR, labs). Should patient exhibit signs concerning for aspiration or a decline in mental or respiratory status, recommend d/c oral diet and make NPO until ST re-assessment.
Speech therapy to follow closely, determine indication for instrumental assessment of swallowing (i.e. VSE) if indicated, assess diet tolerance and modify as appropriate, and provide continued education regarding aspiration risks and precautions.
Discussed recommendations with patient. Educated patient/family on aspiration risks/precautions and monitoring for any signs of aspiration. Pt reported she may be discharged today; Recommend continued monitoring for signs of aspiration upon
discharge and contacting MD should any concern for aspiration occur, or if dysphagia/odynophagia/voice symptoms persist or worsen. Patient verbally reported she understood all recommendations. Signage posted in patient room. All questions answered.
RECOMMEND:
1) Regular texture diet and thin liquids, with patient to select soft textures for ease of mastication
2) Medications whole with small sips of thin liquid
3) Aspiration precautions including: Upright positioning (OOB in chair preferred), small single sips, small bites, alternate textures, eat only when alert, only provide p.o. when SpO2>90 and RR<30, intermittent cough/throat clear and re-swallow.
Oral care 3x/day and increased mobility as able/tolerated to reduce risk for nosocomial infection. Recommend close monitoring for signs/symptoms of aspiration (monitor temp, CXR, labs). Should patient exhibit signs concerning for aspiration or a
decline in mental or respiratory status, recommend d/c oral diet and make NPO until ST re-assessment.
4) Speech therapy to follow closely, determine indication for instrumental assessment of swallowing (i.e. VSE) if indicated
--- NOTE | 2023-11-14 12:59 | W.PN.UPDATE ---
Update Note
Progress Note Update
Patient was seen this a.m.; she reports improving symptoms relative to her throat and chest.
Will continue to follow the patient from events of our outpatient surgical center leading to admission; see H&P from primary. Will have further definitive planning regarding her right knee osteoarthritis in outpatient setting when the patient
stabilizes.
[2023-11-14] MEDS: LOVENOX 40 MG SC (16:36)
[2023-11-14] MEDS: ANESTHETIC LOZENGE 1 LOZENGE PO (16:36)
--- NOTE | 2023-11-14 16:46 | CM ---
Patient from [facility] with Dx Cardiac arrest/PEA arrest. Room air. PT & OT Evals; no needs.
Met with patient and patient's daughter Marlene;
the patient resides in a 2 story house with 7 DAVID.
The patient has been independent in ADLs and ambulation.
The patient is retired and active.
DME- RW, SPC, CPAP
Prior [facility].
No prior SNF.
PCP [facility]
Pharmacy - [facility]
Daughter signed Observation Letter.
No CM d/c needs identified.
Plan home.
[2023-11-14 17:00] LABS: Urine Albumin Negative (Neg - Trace); Urine Bilirubin Negative (Negative); Urine Character Clear (Clear); Urine Color Yellow; Urine Glucose Negative (Negative); Urine Ketone Negative (Negative); Urine Leukocyte Negative (Negative); Urine Nitrite Negative (Negative); Urine Occult Blood Negative (Negative); Urine Urobilinogen Negative (Neg - 1+)
--- NOTE | 2023-11-14 19:56 | PTCARENOTE ---
Received pt from [facility]. Pt is AAOx3. NSR on the monitor, b/l LE +1 edema. On RA O2 sat 94%, lungs diminished. BRP x1. Pt c/o soreness. Family @ bedside. Pt is laying comfortable in bed with call garcia in reach.
[2023-11-15] VITALS (13 sets, daily range): BP systolic 128–163; BP diastolic 65–134; BMI 44.3
[2023-11-15] MEDS: TYLENOL 650 MG PO ×4 (02:59→18:41)
[2023-11-15 06:35] LABS: % Basophils 0.2 % (0-2); % Eosinophils 0.5 % (0-6); % Immature Granulocytes 0.3 % (0-0.5); % Lymphocytes 28.9 % (20.5-51.1); % Neutrophils 60.1 % (42.2-75.2); Absolute Eosinophils 0.1 10^3/uL (0-0.7); Absolute Lymphocytes 3.7 10^3/uL (1.2-3.4); Absolute Monocytes 1.3 10^3/uL (0.1-0.6); Absolute Neutrophils 7.6 10^3/uL (1.4-6.5); Hematocrit 40.2 % (37.0-47.0); Hemoglobin 13.4 g/dL (12.0-16.0); Mean Corp Hgb Conc. 33.3 g/dL (33.0-37.0); Mean Corpuscular Hgb 27.6 pg (27.0-31.0); Mean Corpuscular Volume 82.9 fL (81.0-99.0); Mean Platelet Volume 10.9 fL (7.4-10.4); Nucleated Red Blood Cells % 0 %; Platelet Count 203 10^3/uL (130-400); Red Blood Cell Count 4.85 10^6/uL (4.20-5.40); Red Cell Dist. Width 15.6 % (11.5-14.5); White Blood Cell Count 12.7 10^3/uL (4.8-10.8)
[2023-11-15 07:02] LABS: Blood Urea Nitrogen 13 mg/dl (7-17); Calcium 10.1 mg/dl (8.4-10.2); Carbon Dioxide 31 mmol/L (22-30); Chloride 106 mmol/L (98-107); Estimated Creatinine Clearance 111 ml/min; Glucose 108 mg/dl (70-99); Potassium 4.1 mmol/L (3.5-5.1); Sodium 139 mmol/L (135-145); eGFR > 60.00
[2023-11-15] MEDS: COLACE 100 MG PO (07:48)
[2023-11-15] MEDS: CRESTOR 5 MG PO (07:49)
[2023-11-15] MEDS: OSCAL 500 + D 500 MG PO (07:49)
[2023-11-15] MEDS: NORVASC 2.5 MG PO (07:49)
[2023-11-15] MEDS: ANESTHETIC LOZENGE 1 LOZENGE PO (07:49)
--- NOTE | 2023-11-15 10:56 | W.PN.PUL.V3 ---
Today's Communication / Plan
-
Wean oxygen
Increase activity
CPAP at night
Stable for proposed discharge from a pulmonary perspective with pulmonary follow-up
Assessment
-
Patient is a 62-year-old female with previous history of JENNY on CPAP, morbid obesity, asthma sent to ER following cardiac arrest at outpatient surgery center. She underwent elective right knee replacement, spinal anesthesia was attempted but
unsuccessful. Was tried for attempted LMA but airway could not be established. Decision was made for intubation however she was a very difficult intubation, and under induction desaturated to the 30s and developed PEA arrest. Given epi and
atropine with brief chest compressions. She had ROSC, transported to ER, confused. Her main complaint now is sore throat and chest discomfort. Family at bedside, notes that she had a colonoscopy last week and tolerated MAC well. We are consulted
for eval 11/13/23.
Cardiac arrest, primarily respiratory event with desaturation --> PEA arrest
s/p Epi/atropine/CPR
Difficult airway/failed intubation
History of JENNY, high risk airway
Hypokalemia
Hyperglycemia
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
JENNY on CPAP, AHI 25.2/78%
venous insufficiency in legs
Obesity
Asthma
Depression/anxiety
Colon polyps
Cholecystectomy(1985)
Bilateral tubal ligation
Ankle surgery/ tendon removal/ repair
Right Shoulder Scope 08/13/2022
R foot surgery 03/13
Plan
Respiratory status is currently stable
Wean supplemental oxygen to room air
Assess discharge supplemental oxygen needs prior to discharge
Note the patient had sats in 30s while under anesthesia in preparation for knee surgery
She is not known to be on O2 at home
Wean as tolerated, she is now on RA
Resume CPAP use at night
Prior history of lung disease is noted including asthma, JENNY
Can resume home inhalers
Seen in our office
Sore throat noted, assess for swallow
Speech evaluation noted-- passed/no issues
Suspect patient has respiratory event from difficult airway
We reviewed her risk in the future for any elective procedures using MAC/general
She would need pulmonary clearance in the future
CXRobtained indicating NAD
Other imaging reviewed, repeat testing as needed
Prior ECHO results are reviewed indicating normal function
She had cardiac clearance prior to procedure
Cardiology following-correspondence reviewed-signed off 11/14/2023
Weight loss measures recommended
Obesity likely contributing to respiratory symptoms
We discussed weight loss would improve her risk and reduce her need for CPAP as well
Referral given to OP obesity medicine clinic
Will need outpatient pulmonary evaluation in our office for PFTs and 6MWT
Reviewed with nursing and daughter at the bedside
Stable from a pulmonary perspective for proposed discharge for outpatient pulmonary follow-up
Diagnostic Data
Chest X-Ray: 10/24/23- No active cardiopulmonary disease.
CT Scan:
Echo: 11/05/23- Normal left ventricular size and systolic function. No regional wall motion abnormalities are seen. LV ejection fraction is 65-70% by Matson's method of discs. Normal diastolic function. Normal right ventricular size and function.
Normal atria. No significant valve abnormalities. No evidence of pulmonary hypertension.
.
Subjective Data
-
Date of Service:
Date of Service: November 15, 2023
Chief Complaint: Pulmonary Follow Up and Dyspnea Follow Up
Subjective:
Complains of a sore throat, some difficulty sleeping, was tolerating CPAP at home, no complaints of shortness of breath at rest, chest pain, abdominal pain
Review of Systems
General: Other (Per HPI)
Objective Data
Data Reviewed
Vital Signs / I&O:
Vital Signs
Temp Pulse Resp BP Pulse Ox
98.4 F 73 15 162/86 94
11/15/23 07:59 11/15/23 06:12 11/15/23 06:12 11/15/23 06:12 11/15/23 06:12
Intake and Output
11/14/23 11/15/23 11/16/23
06:59 06:59 06:59
Intake Total 920 / 920 640 / 640
Output Total 800 / 800
Balance 120 / 120 640 / 640
SaO2: 94
Nasal Cannula flow liters per minute: 2
Physical Exam
General: Respiratory Distress (n), Comfortable and Other (NAD)
HEENT: Normocephalic, Anicteric, Moist Mucous Membranes and Other (vocal hoarseness)
Cardiovascular: Regular Rhythm
Respiratory: Clear and Non-Labored Respirations
GI: Soft, Non Distended and Non Tender
Neurology: Awake, Alert, Oriented, AO x 3 and No Motor Deficits
Skin: Warm, Dry and Bruising (neck)
Labs/Micro/Reports
Lab Data
11/15/23 06:01
11/15/23 06:01
--- NOTE | 2023-11-15 12:19 | W.PN.UPDATE ---
Update Note
Progress Note Update
Patient in bedside chair enjoying lunch, daughter at bedside. Transferred here from [facility] November 11 after brief episode of asystole/PEA post spinal while draping for TKA. Very appreciative of everyone's efforts. Chest still a bit sore from
compressions. Swallowing still an issue- seems a plan for GI swallow while admitted. Appreciate the primary team in the care of our patient, continue Tx. Orthopaedics to follow.
--- NOTE | 2023-11-15 13:13 | W.PN.HOSP.TC ---
Today's Communication/Plan
-
input of cardio and Pulm appreciated
will monitor, repeat labs, EKG
Assessment / Plan
Assessment / Plan
Pt seen 11/13. This represents a late entry for that visit
#Hypoxia secondary to Difficult intubation likely causing brief episode of PEA
-Patient treated with epinephrine/atropine and chest compressions with ROSC
Had O2 down to 30% in OR
Mallampati class IV airway on exam
-Patient currently 94-100% on 2 L nasal cannula
-Will monitor for supportive care
-IV Zofran, IV steroids, IV Toradol given in Er
-Check CXR in am, monitor for fever, elevated WBC, blood pressure
CXR: No acute cardiopulmonary process
2D echo 11/05/2023: EF 65 to 70%, no wall abnormalities no valvular abnormalities no pulm HTN
Nuclear stress test 11/07/2023: Negative for ischemia systolic function normal
#Hoarseness of throat with nausea secondary to difficult intubation with multiple airway attempts
--Nurse bedside swallow eval-if passes would give full liquid diet
-Speech swallow eval
-Cepacol lozenges
#Ekg changes 2/2 to likely brief PEA from hypoxia
-follow Ekg, t wave inversion inferior leads
- check troponin
-Consult Cardiology input appreciated
#Hypokalemia
K3.3-->4.3 better
- KCl 40 mEq IV
#Right knee DJD attempted right TKA today 11/13/2023
-unable to perform secondary to difficult intubation, failed spinal epidural and failed LMA would not seal
-Follow-up outpatient with Ortho for new plan
#HTN�benign
BP 148/91
-Hold HCTZ
will start Norvasc
#HLD
-Continue Crestor 5 mg daily
#Hx asthma mild intermittent associated with URIs only
-Patient does not use any inhalers
#Depression
-Follows with psychology
#sleep apnea uses nasal pillow
dx 1.5 months ago
#Morbid obesity due to excess calorie consumption�BMI 46
-Affects all aspects of care
-Weight loss recommended-patient reports did have discussion about Ozempic with PCP who wanted to hold off I recommend she revisit that consult given today's complications from surgery
Other PMH:
Frequent urination, nocturia Hx
Arthritis
DVT prophylaxis
Subcu Lovenox
Full code
Anticipated Discharge: 24 - 48 hours
Subjective/Interval History
-
Date of Service: November 15, 2023
Awake, alert. Still feels throat is not right, feels mucous in throat
Objective Data
-
Labs:
Laboratory Results
11/15/23
06:01
WBC 12.7 H
Hgb 13.4
Hct 40.2
Plt Count 203
Sodium 139
Potassium 4.1
Chloride 106
Carbon Dioxide 31 H
BUN 13
Creatinine 0.6
Glucose 108 H
Calcium 10.1
Vital Signs:
Vital Signs
Temp Pulse Resp BP Pulse Ox
98.3 F 75 19 144/91 94
11/15/23 11:16 11/15/23 10:00 11/15/23 10:00 11/15/23 10:00 11/15/23 11:00
I&O
11/14/23 11/15/23 11/16/23
06:59 06:59 06:59
Intake Total 920 / 920 640 / 640
Output Total 800 / 800
Balance 120 / 120 640 / 640
Review of Systems
-
History Source: Patient and Family (dgt and at bedside)
Constitutional: Denies Fever
EENT: Reports Sore Throat
Respiratory: Reports Cough
Cardiac: Reports No Symptoms; Denies Chest Pain
Abdomen/GI: Reports No Symptoms
Neuro: Reports No Symptoms
Physical Exam
-
General: Well Developed, Well Nourished, No Apparent Distress and Morbidly Obese
HEENT: Normocephalic, Atraumatic and Moist Mucous Membranes
Respiratory: Clear to Auscultation; Negative Wheezes, Rales or Rhonchi
Cardiac: Regular Rhythm and S1/S2
GI: Soft, Nontender and Nondistended
Musculoskeletal: No Clubbing, No Cyanosis and No Edema
--- NOTE | 2023-11-15 13:24 | W.PN.HOSP.TC ---
Today's Communication/Plan
-
VSE on Friday
DC Calcium tablets
follow WBC
Assessment / Plan
Assessment / Plan
#Hypoxia secondary to Difficult intubation likely causing brief episode of PEA
-Patient treated with epinephrine/atropine and chest compressions with ROSC
Had O2 down to 30% in OR
Mallampati class IV airway on exam
-Patient currently 94-100% on 2 L nasal cannula
-Will monitor for supportive care
-IV Zofran, IV steroids, IV Toradol given in Er
11/13 CXR: No acute cardiopulmonary process
2D echo 11/05/2023: EF 65 to 70%, no wall abnormalities no valvular abnormalities no pulm HTN
Nuclear stress test 11/07/2023: Negative for ischemia systolic function normal
#Hoarseness of throat with nausea secondary to difficult intubation with multiple airway attempts
-Speech swallow eval appreciated
recommended VSE, reviewed with dgt and . Will be done on Friday. Pt believes simply large calcium pill was getting stuck in throat
-Cepacol lozenges
#Ekg changes 2/2 to likely brief PEA from hypoxia
-11/14 Ekg: Normal
- check troponin
-Consulted Cardiology input appreciated
Persistent leukocytosis
WBC 9-->13.8-->12.7
unclear etio. CXR is NAPD, UA is normal, ?physiologic stress from acute episode
#Hypokalemia
K3.3-->4.3-->4.1 better
- pt was on HCTZ, since stopped
#Right knee DJD attempted right TKA today 11/13/2023
-unable to perform secondary to difficult intubation, failed spinal epidural and failed LMA would not seal
-Follow-up outpatient with Ortho for new plan
#HTN�benign
BP 144/91
-stop HCTZ
Norvasc 2.5 mg daily
#HLD
-Continue Crestor 5 mg daily
#Hx asthma mild intermittent associated with URIs only
-Patient does not use any inhalers
#Depression
-Follows with psychology
#sleep apnea uses nasal pillow
dx 1.5 months ago
#Morbid obesity due to excess calorie consumption�BMI 46
-Affects all aspects of care
-Weight loss recommended-patient reports did have discussion about Ozempic with PCP who wanted to hold off I recommend she revisit that consult given today's complications from surgery
Other PMH:
Frequent urination, nocturia Hx
Arthritis
DVT prophylaxis
Subcu Lovenox
Full code
Anticipated Discharge: > 48 hours
Subjective/Interval History
-
Date of Service: November 15, 2023
Pt still with sore throat
Objective Data
-
Labs:
Laboratory Results
11/15/23
06:01
WBC 12.7 H
Hgb 13.4
Hct 40.2
Plt Count 203
Sodium 139
Potassium 4.1
Chloride 106
Carbon Dioxide 31 H
BUN 13
Creatinine 0.6
Glucose 108 H
Calcium 10.1
Vital Signs:
Vital Signs
Temp Pulse Resp BP Pulse Ox
98.3 F 75 19 144/91 94
11/15/23 11:16 11/15/23 10:00 11/15/23 10:00 11/15/23 10:00 11/15/23 11:00
I&O
11/14/23 11/15/23 11/16/23
06:59 06:59 06:59
Intake Total 920 / 920 640 / 640
Output Total 800 / 800
Balance 120 / 120 640 / 640
Review of Systems
-
History Source: Patient and Family (dgt and at bedside)
Constitutional: Denies Fever
EENT: Reports Sore Throat
Respiratory: Reports Cough
Cardiac: Reports No Symptoms; Denies Chest Pain
Abdomen/GI: Reports No Symptoms
Neuro: Reports No Symptoms
Physical Exam
-
General: Well Developed, Well Nourished, No Apparent Distress and Morbidly Obese
HEENT: Normocephalic, Atraumatic and Moist Mucous Membranes
Respiratory: Clear to Auscultation; Negative Wheezes, Rales or Rhonchi
Cardiac: Regular Rhythm and S1/S2
GI: Soft, Nontender and Nondistended
Musculoskeletal: No Clubbing, No Cyanosis and No Edema
Neuro: Awake, Alert and Oriented
--- NOTE | 2023-11-15 15:43 | PTCARENOTE ---
Assumed care of patient at beginning of this shift from previous RN. Patient continues with hoarse voice and irritated throat. She stated she was able to take po meds, but had great difficulty with Os-lux. She had no difficulty with smaller pills.
Later she had a 'choking' episode when having a lozenge in her mouth. She said she didn't choke on the lozenge but is was the saliva with it in her mouth that made her choke. Speech therapist on the unit and updated by this RN. Speech therapist in
to see patient and recommended video swallow. Dr Amaya made aware; patient to have VSE on Friday; he also d/c'd Os-lux. See worklist for full assessment and vital signs; see MAR for med administration.
[2023-11-15] MEDS: LOVENOX 40 MG SC (17:15)
[2023-11-15] MEDS: COLACE PO (20:04)
--- NOTE | 2023-11-15 20:34 | PTCARENOTE ---
Received pt from celsa RN. Pt is AAOx3. NSR on the monitor. On RA O2 sat 95%, lungs diminished. Home CPAP HS. Awaiting VSE on Friday. Pt is laying comfortable in bed with call garcia in reach.
[2023-11-16] VITALS (17 sets, daily range): BP systolic 111–184; BP diastolic 57–95; PULSE 93; BMI 44.2
[2023-11-16 04:16] LABS: % Basophils 0.5 % (0-2); % Eosinophils 2.3 % (0-6); % Immature Granulocytes 0.5 % (0-0.5); % Lymphocytes 34.7 % (20.5-51.1); % Monocytes 12.8 % (1.7-9.3); % Neutrophils 49.2 % (42.2-75.2); Absolute Eosinophils 0.2 10^3/uL (0-0.7); Absolute Lymphocytes 3.1 10^3/uL (1.2-3.4); Absolute Monocytes 1.1 10^3/uL (0.1-0.6); Absolute Neutrophils 4.4 10^3/uL (1.4-6.5); Hematocrit 38.6 % (37.0-47.0); Hemoglobin 13.3 g/dL (12.0-16.0); Mean Corp Hgb Conc. 34.5 g/dL (33.0-37.0); Mean Corpuscular Hgb 27.7 pg (27.0-31.0); Mean Corpuscular Volume 80.2 fL (81.0-99.0); Mean Platelet Volume 10.2 fL (7.4-10.4); Nucleated Red Blood Cells % 0 %; Platelet Count 195 10^3/uL (130-400); Red Blood Cell Count 4.81 10^6/uL (4.20-5.40); Red Cell Dist. Width 15.2 % (11.5-14.5); White Blood Cell Count 8.8 10^3/uL (4.8-10.8)
[2023-11-16 04:43] LABS: Blood Urea Nitrogen 12 mg/dl (7-17); Calcium 10.1 mg/dl (8.4-10.2); Carbon Dioxide 27 mmol/L (22-30); Chloride 105 mmol/L (98-107); Estimated Creatinine Clearance 110 ml/min; Glucose 111 mg/dl (70-99); Sodium 136 mmol/L (135-145); eGFR > 60.00
[2023-11-16] MEDS: TYLENOL 650 MG PO ×4 (08:12→21:14)
[2023-11-16] MEDS: CRESTOR 5 MG PO (08:14)
[2023-11-16] MEDS: NORVASC 2.5 MG PO ×2 (08:14→21:15)
[2023-11-16] MEDS: COLACE 100 MG PO ×2 (08:14→21:15)
--- NOTE | 2023-11-16 09:35 | W.PN.HOSP.TC ---
Today's Communication/Plan
-
Hga1c in AM
heating pad to ribs
VSE in AM
Assessment / Plan
Assessment / Plan
#Hypoxia secondary to Difficult intubation likely causing brief episode of PEA
-Patient treated with epinephrine/atropine and chest compressions with ROSC
Had O2 down to 30% in OR
Mallampati class IV airway on exam
-Patient currently 95% on room air
-Will monitor for supportive care
-IV Zofran, IV steroids, IV Toradol given in Er, all stopped
11/13 CXR: No acute cardiopulmonary process
2D echo 11/05/2023: EF 65 to 70%, no wall abnormalities no valvular abnormalities no pulm HTN
Nuclear stress test 11/07/2023: Negative for ischemia systolic function normal
#Hoarseness of throat with nausea secondary to difficult intubation with multiple airway attempts. Still with hoarseness, but has improved
-Speech swallow eval appreciated
recommended VSE, reviewed with dgt and . Will be done on Friday. Pt believes simply large calcium pill was getting stuck in throat
-Cepacol lozenges
#Ekg changes 2/2 to likely brief PEA from hypoxia
-11/14 Ekg: Normal
- troponin peaked 0.114, as per cardio, non MA troponin related to hypotension and hypoxemia, Echo with nl LVEF
-Consulted Cardiology input appreciated
Persistent leukocytosis
WBC 9-->13.8-->12.7-->8.8
etio most likely due to acute stress, now nl. CXR is NAPD, UA is normal,
#Hypokalemia
K3.3-->4.3-->4.1 resolved
- pt was on HCTZ, since stopped
#Right knee DJD attempted right TKA today 11/13/2023
-unable to perform secondary to difficult intubation, failed spinal epidural and failed LMA would not seal
-Follow-up outpatient with Ortho for new plan
#HTN�benign
BP 111/61-183/85
-stopped HCTZ
Norvasc 2.5 mg daily was started, will change to bid
#HLD
-Continue Crestor 5 mg daily
#Hx asthma mild intermittent associated with URIs only
-Patient does not use any inhalers
#Depression
-Follows with psychology
borderline elevated glu
will check Hga1c
#sleep apnea uses nasal pillow
dx 1.5 months ago
left rib pain post CPR, will order heating pad
#Morbid obesity due to excess calorie consumption�BMI 46
-Affects all aspects of care
-Weight loss recommended-patient reports did have discussion about Ozempic with PCP who wanted to hold off I recommend she revisit that consult given today's complications from surgery
Other PMH:
Frequent urination, nocturia Hx
Arthritis
DVT prophylaxis
Subcu Lovenox
Full code
Anticipated Discharge: 24 - 48 hours
Subjective/Interval History
-
Date of Service: November 16, 2023
In good spirits, left lateral rib pain
Objective Data
-
Labs:
Laboratory Results
11/16/23
04:02
WBC 8.8
Hgb 13.3
Hct 38.6
Plt Count 195
Sodium 136
Potassium 4.0
Chloride 105
Carbon Dioxide 27
BUN 12
Creatinine 0.6
Glucose 111 H
Calcium 10.1
Vital Signs:
Vital Signs
Temp Pulse Resp BP Pulse Ox
99.2 F 87 17 183/85 95
11/16/23 07:05 11/16/23 08:11 11/16/23 08:11 11/16/23 08:11 11/16/23 08:11
I&O
11/15/23 11/16/23 11/17/23
06:59 06:59 06:59
Intake Total 640 / 640 200 / 200
Balance 640 / 640 200 / 200
Review of Systems
-
History Source: Patient and Family (dgt at bedside)
Constitutional: Denies Fever
EENT: Reports Sore Throat (better, not resolved)
Respiratory: Reports Cough
Cardiac: Reports No Symptoms; Denies Chest Pain
Abdomen/GI: Reports No Symptoms
Neuro: Reports No Symptoms
Physical Exam
-
General: Well Developed, Well Nourished, No Apparent Distress and Morbidly Obese
HEENT: Normocephalic, Atraumatic and Moist Mucous Membranes
Respiratory: Clear to Auscultation; Negative Wheezes, Rales or Rhonchi
Cardiac: Regular Rhythm and S1/S2
GI: Soft, Nontender and Nondistended
Musculoskeletal: No Clubbing, No Cyanosis and No Edema
Neuro: Awake, Alert and Oriented
--- NOTE | 2023-11-16 10:36 | W.PN.PUL.V3 ---
Today's Communication / Plan
-
Wean oxygen
Increase activity
CPAP at night
Video swallow Friday
Assessment
-
Patient is a 62-year-old female with previous history of JENNY on CPAP, morbid obesity, asthma sent to ER following cardiac arrest at outpatient surgery center. She underwent elective right knee replacement, spinal anesthesia was attempted but
unsuccessful. Was tried for attempted LMA but airway could not be established. Decision was made for intubation however she was a very difficult intubation, and under induction desaturated to the 30s and developed PEA arrest. Given epi and
atropine with brief chest compressions. She had ROSC, transported to ER, confused. Her main complaint now is sore throat and chest discomfort. Family at bedside, notes that she had a colonoscopy last week and tolerated MAC well. We are consulted
for eval 11/13/23.
Cardiac arrest, primarily respiratory event with desaturation --> PEA arrest
s/p Epi/atropine/CPR
Difficult airway/failed intubation
History of JENNY, high risk airway
Hypokalemia
Hyperglycemia
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
JENNY on CPAP, AHI 25.2/78%
venous insufficiency in legs
Obesity
Asthma
Depression/anxiety
Colon polyps
Cholecystectomy(1985)
Bilateral tubal ligation
Ankle surgery/ tendon removal/ repair
Right Shoulder Scope 08/13/2022
R foot surgery 03/13
Plan
She remains stable from a pulmonary perspective
Supplemental oxygen weaned to room air
Assess discharge supplemental oxygen needs prior to discharge
Note the patient had sats in 30s while under anesthesia in preparation for knee surgery
She is not known to be on O2 at home
Wean as tolerated, she is now on RA
Resume CPAP use at night-she brought her own in and is tolerating
Prior history of lung disease is noted including asthma, JENNY
Can resume home inhalers
Seen in our office
Sore throat noted, assess for swallow
Speech evaluation ongoing
Video swallow 11/17/2023-pending
Suspect patient has respiratory event from difficult airway
We reviewed her risk in the future for any elective procedures using MAC/general
She would need pulmonary clearance in the future
Chest x-ray obtained-NAD
Prior ECHO results are reviewed indicating normal function
She had cardiac clearance prior to procedure
Cardiology following-correspondence reviewed-signed off 11/14/2023
Weight loss measures recommended
Obesity likely contributing to respiratory symptoms
We discussed weight loss would improve her risk and reduce her need for CPAP as well
Referral given to OP obesity medicine clinic
Will need outpatient pulmonary evaluation in our office for PFTs and 6MWT
Once again reviewed with nursing and daughter at the bedside
Stable from a pulmonary perspective for proposed discharge for outpatient pulmonary follow-up after video swallow
Diagnostic Data
Chest X-Ray: 10/24/23- No active cardiopulmonary disease.
Echo: 11/05/23- Normal left ventricular size and systolic function. No regional wall motion abnormalities are seen. LV ejection fraction is 65-70% by Matson's method of discs. Normal diastolic function. Normal right ventricular size and function.
Normal atria. No significant valve abnormalities. No evidence of pulmonary hypertension.
Subjective Data
-
Date of Service:
Date of Service: November 16, 2023
Chief Complaint: Pulmonary Follow Up and Dyspnea Follow Up
Subjective:
Some complaints of sore throat, slept well, used to own CPAP, no shortness of breath at rest, chest pain, abdominal pain
Review of Systems
General: Other (Per HPI)
Objective Data
Data Reviewed
Vital Signs / I&O:
Vital Signs
Temp Pulse Resp BP Pulse Ox
99.2 F 87 17 183/85 95
11/16/23 07:05 11/16/23 08:11 11/16/23 08:11 11/16/23 08:11 11/16/23 08:11
Intake and Output
11/15/23 11/16/23 11/17/23
06:59 06:59 06:59
Intake Total 640 / 640 200 / 200
Balance 640 / 640 200 / 200
SaO2: 95
Nasal Cannula flow liters per minute: 2
Physical Exam
General: Respiratory Distress (n), Comfortable and Other (NAD)
HEENT: Normocephalic, Anicteric, Moist Mucous Membranes and Other (vocal hoarseness)
Cardiovascular: Regular Rhythm
Respiratory: Clear and Non-Labored Respirations
GI: Soft, Non Distended and Non Tender
Neurology: Awake, Alert, Oriented, AO x 3 and No Motor Deficits
Skin: Warm, Dry and Bruising (neck)
Labs/Micro/Reports
Lab Data
11/16/23 04:02
11/16/23 04:02
--- NOTE | 2023-11-16 10:48 | W.PN.UPDATE ---
Update Note
Progress Note Update
Patient in bedside chair enjoying breakfast, daughter at bedside. Transferred here from [facility] November 11 after brief episode of asystole/PEA post spinal while draping for TKA. Very appreciative of everyone's efforts. Chest still a bit sore from
compressions. Swallowing still an issue- seems a plan for GI testing while admitted. Appreciate the primary team in the care of our patient, continue Tx. Orthopaedics to follow.
[2023-11-16] MEDS: LOVENOX 40 MG SC (17:15)
--- NOTE | 2023-11-16 18:28 | PTCARENOTE ---
Mostly oob all day, ambulates to bathroom. Hoarse voice, still having difficulty swallowing luciano. pills- better with applesauce and chin tuck. She is sticking to soft foods did have salmon this evening. Pain left thorax and back, improved with
Tylenol given 3x this shift and heating pad. Monitoring moderately high BPs- currently 165/75 - Amlodipine increased today- next dose 8pm.
--- NOTE | 2023-11-16 21:30 | PTCARENOTE ---
Pt recieved from day shift, AAOx3, pleasant, and resting comfortably in bed. Pt c/o of 3/10 pain on her left side, new ice pack and PRN Tylenol given. VSS, in bed with CPAP on. Call garcia in reach.
[2023-11-17] VITALS (7 sets, daily range): BP systolic 125–182; BP diastolic 63–97; BMI 43.5
--- NOTE | 2023-11-17 08:06 | W.PN.UPDATE ---
Update Note
Progress Note Update
Patient in bedside chair, daughter at bedside. Transferred here from [facility] November 11 after brief episode of asystole/PEA post spinal while draping for TKA. Overall, she states she continues to make progress in the right direction. Chest still a bit
sore from compressions, and continues with some hoarseness. Patient reports she is scheduled for further testing with GI today. Appreciate the primary team in the care of our patient, continue Tx. Orthopaedics to follow.
[2023-11-17 08:36] LABS: Glycohemoglobin (HgbA1c) 5.8 % (4.0-5.6)
[2023-11-17] MEDS: COLACE 100 MG PO (08:42)
[2023-11-17] MEDS: NORVASC 2.5 MG PO (08:42)
[2023-11-17] MEDS: CRESTOR 5 MG PO (08:42)
--- NOTE | 2023-11-17 09:56 | W.PN.HOSP.TC ---
Today's Communication/Plan
-
Discharge today
Assessment / Plan
Assessment / Plan
#Hypoxia secondary to Difficult intubation likely causing brief episode of PEA
-Patient treated with epinephrine/atropine and chest compressions with ROSC
Had O2 down to 30% in OR
Mallampati class IV airway on exam
-Patient currently 95% on room air
-s/p IV Zofran, IV steroids, IV Toradol given in ER, all stopped
-Medically stable for discharge
11/13 CXR: No acute cardiopulmonary process
2D echo 11/05/2023: EF 65 to 70%, no wall abnormalities no valvular abnormalities no pulm HTN
Nuclear stress test 11/07/2023: Negative for ischemia systolic function normal
#Hoarseness of throat with nausea secondary to difficult intubation with multiple airway attempts. Still with hoarseness, but has improved
-Pt believes simply large calcium pill was getting stuck in throat
-Cepacol lozenges
-VSE 11/16 neg for aspiration, tolerating reg diet w/ thin liq, SPL rec large pills taken w/ apple sauce
#Ekg changes 2/2 to likely brief PEA from hypoxia
#Non ischemic myocardial injury related to hypotension and hypoxemia
-11/14 Ekg: Normal
- troponin peaked 0.114, as per cardio, non AR troponin related to hypotension and hypoxemia, Echo with nl LVEF
- Cardiology input appreciated
Persistent leukocytosis
WBC 9-->13.8-->12.7-->8.8
etio most likely due to acute stress, now nl. CXR is NAPD, UA is normal,
#Hypokalemia
K3.3-->4.3-->4.1 resolved
- pt was on HCTZ, since stopped
#Right knee DJD attempted right TKA today 11/13/2023
-unable to perform secondary to difficult intubation, failed spinal epidural and failed LMA would not seal
-Follow-up outpatient with Ortho for new plan
#HTN�benign
BP uncontrolled
-stopped HCTZ
-Increase amlodipine to 5 mg twice a day upon discharge
#HLD
-Continue Crestor 5 mg daily
#Hx asthma mild intermittent associated with URIs only
-Patient does not use any inhalers
#Depression
-Follows with psychology
borderline elevated glu
will check Hga1c
#sleep apnea uses nasal pillow
dx 1.5 months ago
left rib pain post CPR, -heating pad
#Morbid obesity due to excess calorie consumption�BMI 46
-Affects all aspects of care
-Weight loss recommended-patient reports did have discussion about Ozempic with PCP who wanted to hold off I recommend she revisit that consult given today's complications from surgery
Other PMH:
Frequent urination, nocturia Hx
Arthritis
DVT prophylaxis
Subcu Lovenox
Full code
Physical Exam
General: Morbidly obese, no acute distress
HEENT: Normocephalic, Atraumatic, EOMI, MMM
Respiratory: Clear to Auscultation bilaterally
Cardiac: Normal S1/S2, Regular Rate and Rhythm
GI: Soft, Nontender, Nondistended, Normal Bowel Sounds
Extremities: No Clubbing, Cyanosis, or Edema
Neuro: Nonfocal/Grossly Intact
Psych: Calm, Cooperative
Anticipated Discharge: Today
Subjective/Interval History
-
Date of Service: November 17, 2023
Patient's hoarse voice is improving. She is tolerating her meals. Her musculoskeletal chest and back pain are also improving. No fever, no vomiting.
Objective Data
-
Vital Signs:
Vital Signs
Temp Pulse Resp BP Pulse Ox
97.9 F 90 12 182/5 95
11/17/23 08:00 11/17/23 08:42 11/17/23 06:00 11/17/23 08:42 11/17/23 06:00
I&O
11/16/23 11/17/23 11/18/23
06:59 06:59 06:59
Intake Total 200 / 200 480 / 480
Balance 200 / 200 480 / 480
--- NOTE | 2023-11-17 10:30 | W.PN.PUL3 ---
Today's Communication / Plan
-
Continue with current care
Continue nocturnal CPAP
Outpatient pulmonary follow-up
Sign off
Assessment
-
Patient is a 62-year-old female with previous history of JENNY on CPAP, morbid obesity, asthma sent to ER following cardiac arrest at outpatient surgery center. She underwent elective right knee replacement, spinal anesthesia was attempted but
unsuccessful. Was tried for attempted LMA but airway could not be established. Decision was made for intubation however she was a very difficult intubation, and under induction desaturated to the 30s and developed PEA arrest. Given epi and
atropine with brief chest compressions. She had ROSC, transported to ER, confused. Her main complaint now is sore throat and chest discomfort. Family at bedside, notes that she had a colonoscopy last week and tolerated MAC well. We are consulted
for eval 11/13/23.
Cardiac arrest, primarily respiratory event with desaturation --> PEA arrest
s/p Epi/atropine/CPR
Difficult airway/failed intubation
History of JENNY, high risk airway
Hypokalemia
Hyperglycemia
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
JENNY on CPAP, AHI 25.2/78%
venous insufficiency in legs
Obesity
Asthma
Depression/anxiety
Colon polyps
Cholecystectomy(1985)
Bilateral tubal ligation
Ankle surgery/ tendon removal/ repair
Right Shoulder Scope 08/13/2022
R foot surgery 03/13
Plan
Stable from the respiratory perspective.
Not requiring supplemental oxygen.
Neurologically intact
Continues to use nocturnal CPAP.
-
Prior history of lung disease is noted including asthma, JENNY
Continue inhalers. Not bronchospastic on exam.
Seen in our office-Dr. Rodriguez.
Modified barium swallow: No overt aspiration. On regular diet.
-
May need ENT evaluation if voice continues to be hoarse after 1 to 2 weeks after discharge.
Suspect patient has respiratory event from difficult airway
We reviewed her risk in the future for any elective procedures using MAC/general
She would need pulmonary clearance in the future
Prior ECHO results are reviewed indicating normal function
She had cardiac clearance prior to procedure
Cardiology following-correspondence reviewed-signed off 11/14/2023
Weight loss measures recommended
Obesity likely contributing to respiratory symptoms
Referral given to OP obesity medicine clinic during this admission.
Stable from a pulmonary perspective for proposed discharge.
Pulmonary team will sign off.
Outpatient pulmonary follow-up with Dr. Rodriguez after discharge.
Diagnostic Data
Chest X-Ray: 10/24/23- No active cardiopulmonary disease.
Echo: 11/05/23- Normal left ventricular size and systolic function. No regional wall motion abnormalities are seen. LV ejection fraction is 65-70% by Matson's method of discs. Normal diastolic function. Normal right ventricular size and function.
Normal atria. No significant valve abnormalities. No evidence of pulmonary hypertension.
Subjective Data
-
Date of Service:
Date of Service: November 17, 2023
Chief Complaint: Pulmonary Follow Up and Dyspnea Follow Up
Subjective:
Continues to report intermittent chest discomfort with deep inspiration.
Denies shortness of breath.
Voice continues to be hoarse.
Eager to go home.
Review of Systems
Cardiopulmonary: Dyspnea (n) and Dyspnea on Exertion (n)
GI: Abdominal Pain (n) and Nausea (n)
Objective Data
Data Reviewed
Vital Signs / I&O / Oxygen:
Vital Signs
Temp Pulse Resp BP Pulse Ox
97.9 F 90 12 182/5 95
11/17/23 08:00 11/17/23 08:42 11/17/23 06:00 11/17/23 08:42 11/17/23 06:00
Intake and Output
11/16/23 11/17/23 11/18/23
06:59 06:59 06:59
Intake Total 200 / 200 480 / 480
Balance 200 / 200 480 / 480
SaO2 95
Nasal Cannula flow liters per 2
minute
Physical Exam
General: Respiratory Distress (n), Comfortable and Other (NAD)
HEENT: Normocephalic, Anicteric, Moist Mucous Membranes and Other (vocal hoarseness)
Cardiovascular: Regular Rhythm
Respiratory: Clear and Non-Labored Respirations
GI: Soft, Non Distended and Non Tender
Neurology: Awake, Alert, Oriented, AO x 3 and No Motor Deficits
Skin: Warm, Dry and Bruising (neck)
Labs/Micro/Reports
Lab Data
11/16/23 04:02
11/16/23 04:02
--- NOTE | 2023-11-17 10:48 | PTCARENOTE ---
Pt is AAOX3, sitting OOb in chair, daughter at bedside. Pt on RA. Lungs diminished . Pt went for Video swallow and back without incident. Took pills without incident
--- NOTE | 2023-11-17 11:03 | PTOTSP ---
Video Swallow Study
Summary: Patient presents with functional oral/pharyngeal stages of swallowing despite mild differences noted (see patient care note). No significant retention, penetration, or aspiration occurred. If dysphonia does not persist, ENT consult
should be considered given history of difficult intubation.
Recommend:
1. Regular (pick soft foods for comfort), Thin Liquids
2. Medications - as best tolerated, consider crushing large pills (if medically cleared) and mixing in applesauce
3. Strategies: upright for PO intake, pick soft/moist foods for comfort, cut meats into bite sized pieces and chew well
4. Oral care 3x daily
5. No further dysphagia therapy warranted at this time.
6. ENT consult warranted if dysphonia does not improve and then LADLE REPAIRMAN consult for voice evaluation as appropriate.
--- NOTE | 2023-11-17 11:25 | W.DCSUMMARY ---
Discharge Summary
Discharge Data
Date of Admission: 11/14/23
Date of Discharge: 11/17/23
-
Pending Results: No
Hospital Course
Discharge diagnosis:
Acute hypoxia secondary to difficult intubation
Brief pulseless electrical activity cardiac arrest
Hoarseness of throat
Nonischemic myocardial injury related to hypotension and hypoxemia
Reactive leukocytosis
Hypokalemia
Musculoskeletal rib pain
Benign essential hypertension
Right knee osteoarthritis
Consults: Pulmonology, cardiology, orthopedic surgery
Echo:
Limited follow up study
Technically difficult with fair image quality
Normal left ventricular size and systolic function.
LV ejection fraction is 60-65% .
Compared to the previous echo there is no significant change. in LV function
Hospital course:
62-year-old female with a past medical history of hypertension, hyperlipidemia, morbid obesity, and right knee osteoarthritis who was admitted for brief PEA secondary to acute hypoxia while being intubated for her planned right TKA surgery. Patient
is a difficult intubation, Mallampati class 4. During the intubation attempt in preparation for her right knee TKA surgery, she had acute hypoxia, leading to a brief PEA arrest. She received CPR, epinephrine, and atropine, with ROSC. Patient was
seen in conjunction with the reliability manager/accounts manager. She received IV steroids in the ER. She recovered remarkably, and briefly required oxygen. She was treated with bronchodilators, and successfully weaned to room air.
Patient was seen in conjunction with cardiology. She had EKG changes and an elevated troponin from nonischemic myocardial injury due to her hypotension and hypoxemia. Echocardiogram was obtained, results as above. She was stable cardiac snow.
Patient's hospital course was complicated by choking on a large calcium pill. She was seen in conjunction with speech pathology. VSE was negative for aspiration. She was cleared for a regular diet with thin liquids, medications crushed in
applesauce as needed. Patient tolerated her diet.
Patient did have transient hypotension upon admission. Her hydrochlorothiazide was discontinued. Her blood pressure increased. She was started on amlodipine, and this was titrated to 5 mg twice a day upon discharge.
Patient has obstructive sleep apnea, and is continued on her CPAP. She is medically stable and cleared by pulmonology for discharge. She needs to follow-up with pulmonology in the office, her primary care doctor, as well as orthopedic surgery.
Disposition: Home self-care
Discharge planning: Required 39 minutes
Discharge Plan
-
Patient Disposition: Home (Routine Discharge)
Discharge Diagnosis/Procedures: Hypoxia, brief pulseless electrical activity cardiac arrest, difficult airway, obstructive sleep apnea, hypertension, morbid obesity
Condition: Good
Diet: Low Fat and Low Cholesterol
Activity: As tolerated
Driving Restrictions: As prior to admission
Referrals:
Lulu Morse DO [Active] - in three to four weeks (PFT, w/ BUTTON GRADER ok)
Leonor Pino MD [Active] - in six weeks (Obesity Medicine Referral )
Urban Mccain MD [Family Provider] - in one week
Prescriptions:
New
amlodipine 5 mg tablet
5 mg PO BID Qty: 60 0RF
Continued
docusate sodium [Colace] 100 mg Capsule
100 mg PO BID
therapeutic multivitamin Tablet
1 tab PO DAILY
mupirocin 2 % Ointment
1 applic TOPICAL BID
Patient Comments:
11/13/23: taken for operation, started 3 days pre-op.
rosuvastatin 5 mg Tablet
5 mg PO DAILY
Held
calcium carbonate-vitamin D3 500 mg-3.125 mcg (125 unit) Tablet
1 tab PO DAILY
Hold Instructions: Resume on 11/24/23.
Discontinued
hydrochlorothiazide 25 mg Tablet
25 mg PO DAILY
Discharge Orders:
Discharge Patient (As Directed); Ordered 11/17/23
Ordered By: Job Lewis
Discharge Date and Time
Discharge Date/Time: 11/17/23 14:48
Print Language: MALAY
--- NOTE | 2023-11-17 11:58 | PN.CDI ---
CDI
- -
CDI:
Physician Documentation Request
Admit Date: 11/14/23 03:00
Dear Doctor Do,
Please review the following and provide your response in the progress notes.
Clinical Indicators:
PN, 11/15
#Ekg changes 2/2 to likely brief PEA from hypoxia
#...-11/14 Ekg: Normal
#...- troponin peaked 0.114, as per cardio,
#...non ID troponin related to hypotension and hypoxemia, ....
Laboratory Tests
11/13/23 11/13/23 11/13/23
10:52 16:44 23:17
Troponin I < 0.012 0.114 H* D 0.089 H*
Please clarify the etiology of the troponin elevation....:
Non ischemic myocardial injury related to hypotension and hypoxemia
Troponin elevation only
Other(please specify)
Use of terms such as suspected, likely, concern for, or probable (associated with a specific diagnosis that is being evaluated, monitored, or treated as if it exists) are acceptable and can be coded in the inpatient setting, when documented at the
time of discharge.
Thank you,
Jeny Senior RN BSN CCDS
CDI Specialist
please contact via tiger text
Please use your independent medical judgment in providing your response.
[2023-11-17] MEDS: NORVASC 5 MG PO (12:34)
--- NOTE | 2023-11-17 13:52 | CM ---
Patient seen at bedside with patient daughter. Patient for possible discharge home today. Per patient daughter she will provide transport home and IMM form provided. Daughter and patient to review and updated signed form to be given to nursing.
Patient and daughter declined VN supports. CM will continue to follow for discharge planning needs.
Plan; home with no needs
== END 2023-11-17 14:48 | disposition home or self-care (01) | DRG 919 ==
LOC: IMU 03:00
PROVIDERS: Clinical Nurse Specialist Family Health; ADMITTING PHYSICIAN Internal Medicine; ATTENDING PHYSICIAN Family Medicine; CONSULT PHYSICIAN Internal Medicine; EMERGENCY PHYSICIAN Emergency Medicine; FAMILY PHYSICIAN Family Medicine
PROC: 5A09357 Assistance with Respiratory Ventilation, Less than 24 Consecutive Hours, Continuous Positive Airway Pressure (ICD-10-PCS; 2023-11-16)
DX: T88.4XXA Failed or difficult intubation, initial encounter (principal); I46.8 Cardiac arrest due to other underlying condition; I5A Non-ischemic myocardial injury (non-traumatic); Z68.42 Body mass index [BMI] 45.0-49.9, adult; E78.00 Pure hypercholesterolemia, unspecified; E66.01 Morbid (severe) obesity due to excess calories; E87.6 Hypokalemia; F32.A Depression, unspecified; F41.9 Anxiety disorder, unspecified; G47.33 Obstructive sleep apnea (adult) (pediatric); I10 Essential (primary) hypertension; I87.2 Venous insufficiency (chronic) (peripheral); K59.00 Constipation, unspecified; R09.02 Hypoxemia; J45.20 Mild intermittent asthma, uncomplicated; R73.9 Hyperglycemia, unspecified; R49.0 Dysphonia; D72.829 Elevated white blood cell count, unspecified; I95.9 Hypotension, unspecified; Z79.899 Other long term (current) drug therapy; Z82.49 Family history of ischemic heart disease and other diseases of the circulatory system; R07.81 Pleurodynia; M17.11 Unilateral primary osteoarthritis, right knee; T17.298A Other foreign object in pharynx causing other injury, initial encounter
CPT/HCPCS: 93308; 71045; 74230; 80048; 80053; 81003; 83036; 84484; 85025; 92526; 92610; 92611; 93005; 96374; 96375; 97116; 97162; 97163; 97167; 99285

== ENCOUNTER → 2023-12-29 13:21 | Outpatient (REF) | payer MEDICARE, OTHER, SELFPAY | LOC: HWRAD 13:21 | PROVIDERS: ATTENDING PHYSICIAN Otolaryngology Facial Plastic Surgery; FAMILY PHYSICIAN Family Medicine | DX: R49.0 Dysphonia (principal); D34 Benign neoplasm of thyroid gland | CPT/HCPCS: 76536 ==

== ENCOUNTER → 2024-08-16 13:49 | Outpatient (REF) | payer OTHER, SELFPAY | LOC: HWRAD 13:49 | PROVIDERS: ATTENDING PHYSICIAN Obstetrics & Gynecology; FAMILY PHYSICIAN Family Medicine | DX: Z12.31 Encounter for screening mammogram for malignant neoplasm of breast (principal); Z78.0 Asymptomatic menopausal state | CPT/HCPCS: 77063; 77067; 77080 ==

== ENCOUNTER → 2025-01-24 12:23 | Outpatient (REF) | payer OTHER, SELFPAY | LOC: DHSLP 12:23 | PROVIDERS: ATTENDING PHYSICIAN Internal Medicine; FAMILY PHYSICIAN Family Medicine | DX: G47.33 Obstructive sleep apnea (adult) (pediatric) (principal) | CPT/HCPCS: 95800 ==